=== PATIENT | male | born 1975 | race Caucasian/White ===

== ENCOUNTER 2019-07-27 11:14 | Emergency (ER) | payer OTHER ==
[2019-07-27 11:54] VITALS: BP 137/83; PULSE 104; TEMP 102.7
[2019-07-27] MEDS ORDERED: IBUPROFEN 600 MG STARTER PACK 4 TAB BTL PO STA (12:02)
[2019-07-27] MEDS ORDERED: ACETAMINOPHEN TAB 500 MG TAB PO STA (12:02)
[2019-07-27] MEDS ORDERED: OSELTAMIVIR 75 MG CAP PO STA (12:16)
--- NOTE | 2019-07-27 12:29 | ED ---
URI HPI - General Chief Complaint: Upper Respiratory Infection Stated Complaint: Cough/fever Time Seen by Provider: 07/27/19 12:02 Source: patient, RN notes reviewed, old records reviewed Mode of arrival: ambulatory Limitations: no limitations - History of Present Illness Initial Comments: Patient is a 44-year-old male presented today for either of her concern for cough and fever 2 days. Patient complains of no nausea or vomiting. He is a nonsmoker. Denies history of sick contacts that he is aware. Denies any recent Motrin or Tylenol. He states that his cough is nonproductive. Denies a significant sore throat or congestion. - Related Data Previous Rx's Medication Instructions Recorded Ibuprofen [Motrin] 400 mg PO Q4H #20 tab 07/27/19 Oseltamivir [Tamiflu] 75 mg PO Q12HR #10 cap 07/27/19 Allergies Allergy/AdvReac Type Severity Reaction Status Date / Time Sulfa (Sulfonamide Allergy Rash/Hives Verified 07/27/19 12:32 Antibiotics) Review of Systems ROS Statement: Those systems with pertinent positive or pertinent negative responses have been documented in the HPI. ROS Other: All systems not noted in ROS Statement are negative. Past Medical History Past Medical History: No Reported History Past Surgical History: Orthopedic Surgery General Exam - General Exam Comments Initial Comments: 44-year-old male. Alert and oriented. No significant distress. Febrile 102 temperature. Limitations: no limitations General appearance: alert, in no apparent distress Head exam: Present: atraumatic, normocephalic, normal inspection Eye exam: Present: normal appearance, PERRL, EOMI. Absent: scleral icterus, conjunctival injection, periorbital swelling ENT exam: Present: normal exam, mucous membranes moist Neck exam: Present: normal inspection. Absent: tenderness, meningismus, lymphadenopathy Respiratory exam: Present: normal lung sounds bilaterally. Absent: respiratory distress, wheezes, rales, rhonchi, stridor Cardiovascular Exam: Present: regular rate, normal rhythm, normal heart sounds. Absent: systolic murmur, diastolic murmur, rubs, gallop, clicks GI/Abdominal exam: Present: soft, normal bowel sounds. Absent: distended, tenderness, guarding, rebound, rigid Extremities exam: Present: normal inspection, full ROM, normal capillary refill. Absent: tenderness, pedal edema, joint swelling, calf tenderness Back exam: Present: normal inspection Neurological exam: Present: alert, oriented X3, CN II-XII intact Psychiatric exam: Present: normal affect, normal mood Skin exam: Present: warm, dry, intact, normal color. Absent: rash Course Vital Signs 07/27/19 11:52 Temperature 102.7 F H Pulse Rate 104 H Respiratory 18 Rate Blood Pressure 137/83 O2 Sat by Pulse 100 Oximetry Medical Decision Making - Medical Decision Making 44-year-old male presents today for fever cough congestion. Patient did not have any Motrin or Tylenol. Patient has fever 102. Patient appears in no acute distress at this time. No other signs or respirations chest and lungs are lonny r. Patient is positive for influenza A. Discussed treatment with Tamiflu and advise close follow-up with primary care doctor. Discussed the importance of remaining hydrated and alternating Motrin and Tylenol. - Lab Data Lab Results 07/27/19 Range/Units 11:54 Influenza Type A RNA Detected H (Not Detectd) Influenza Type B (PCR) Not Detected (Not Detectd) Disposition Clinical Impression: Influenza A Disposition: HOME SELF-CARE Condition: Good Instructions (If sedation given, give patient instructions): Upper Respiratory Infection (ED) Additional Instructions: Please use medication as discussed including alternating Motrin and Tylenol for fever and pain. Patient advised to rest, remain hydrated. Please follow up with family doctor if symptoms have not improved over the next two days. Please return to the emergency room if your symptoms increase or worsen or for any other concerns. Prescriptions: Ibuprofen [Motrin] 400 mg PO Q4H #20 tab Oseltamivir [Tamiflu] 75 mg PO Q12HR #10 cap Is patient prescribed a controlled substance at d/c from ED?: No Referrals: None,Stated [Primary Care Provider] - 1-2 days Time of Disposition: 12:28
[2019-07-27 12:51] VITALS: RESP 20
== END 2019-07-27 13:10 | disposition home or self-care (01) ==
LOC: EC 11:14
DX: J10.1 Influenza due to other identified influenza virus with other respiratory manifestations (principal); Z88.2 Allergy status to sulfonamides
CPT/HCPCS: 87502; 99284